=== PATIENT | male | born 1980 | race Caucasian/White ===

== ENCOUNTER 2025-09-12 05:59 | Day surgery (SDC) | payer OTHER, SELFPAY ==
[2025-09-12] VITALS (10 sets, daily range): BP systolic 110–144; BP diastolic 85–99; BMI 30.7
[2025-09-12] MEDS: NORMOSOL-R/PLASMALYTE-A 1000 IV (06:59)
[2025-09-12] MEDS: DILAUDID 0.25 MG IV ×2 (08:45→09:23)
[2025-09-12] MEDS: DILAUDID 0.5 MG IV (09:08)
== END 2025-09-12 10:40 | disposition home or self-care (01) ==
LOC: SDS 05:59
PROVIDERS: ATTENDING PHYSICIAN Otolaryngology
DX: J34.2 Deviated nasal septum (principal); J34.3 Hypertrophy of nasal turbinates; F17.290 Nicotine dependence, other tobacco product, uncomplicated
CPT/HCPCS: 30130